=== PATIENT | female | born 1940 | race Caucasian/White ===

== ENCOUNTER 2017-03-08 10:15 | Emergency (ER) | payer MEDICARE, OTHER ==
[~2017-03-08 10:15] MED LIST: AMIT50 PO; ASPI81TA82 PO; BACL10TA PO; CALC-179 PO; DYAZ PO; FISH1000 PO; KONS520C PO; NORV5TAB PO; PARO10TA PO; PERC5TAB12 PO; PRAV20 PO; PRED20 PO; RANI150 PO
[2017-03-08 10:17] VITALS: BP 101/63; PULSE 92; RESP 20; TEMP 98.7; O2SAT 96
[2017-03-08] MEDS ORDERED: AMIT50TA3 PO (11:40)
[2017-03-08] MEDS ORDERED: PAXI10TA8 PO (11:40)
[2017-03-08] MEDS ORDERED: AMLO5 PO (11:43)
[2017-03-08] MEDS ORDERED: PRAV20TA2 PO (11:43)
[2017-03-08] MEDS ORDERED: OMEG100010 PO (11:43)
[2017-03-08] MEDS ORDERED: CALC600T5 PO (11:45)
[2017-03-08] MEDS ORDERED: ASPI81TA23 PO (11:46)
--- NOTE | 2017-03-08 11:52 | PD ---
HPI Chief Complaint: Fall Time Seen by Provider: 11:41 Travel History International Travel<30 days: No Contact w/Intl Traveler<30days: No Traveled to known affect area: No History of Present Illness HPI 76-year-old right-hand dominant female with PMH of arthritis presents to the ED for evaluation of 10 /10 throbbing right wrist and thumb pain. Pain somewhat alleviated by rest. Onset after the patient tripped while carrying a basket in the grass and landed on her outstretched arm. She denies numbness, tingling or weakness. She endorses limitations to range of motion secondary to pain. She treated at home with Tylenol 3 last night and applied a brace. Denies previous injury to the area. PFSH Past Medical History Arthritis: Yes Autoimmune Disease: No Anxiety: Yes Cancer: No Cardiovascular Problems: No High Cholesterol: Yes Endocrine: No Genitourinary: No Headaches: Yes Hypertension: Yes Immune Disorder: No Musculoskeletal: No Reproductive: No Respiratory: No Migraines: Yes Tetanus Vaccination: > 5 Years Influenza Vaccination: Yes ?: Not Menopausal: Yes Tubal Ligation: Yes Past Surgical History Body Medical Devices: screw right shoulder Gynecologic Surgery: Yes (breast biopsy age 35 benign, laparoscopy age 46) Tonsillectomy: Yes Other Surgery: Yes Social History Alcohol Use: No Tobacco Use: No Substance Use: No Allergies-Medications (Allergen,Severity, Reaction): Coded Allergies: No Known Allergies (Unverified Adverse Reaction, Unknown, 03/08/17) Reported Meds & Prescriptions Reported Meds & Active Scripts Active Reported Naproxen Unknown Strength Tab Unknown Dose PO BID PRN Psyllium Powder 100 % Pow 1 Scoop PO DAILY PRN 1 rounded TEASPO[place] in 8 oz of liquid at the first sign of irregularity. Triamterene-Hydrochlorothiazide 37.5-25 Mg Cap 1 Cap PO DAILY Aspirin EC (Aspirin) 81 Mg Tabdr 81 Mg PO DAILY Calcium (Calcium Carbonate) 600 Mg Calcium (1500 Mg) Tab 1 Tab PO DAILY [place] Level 3 1000 mg (Pine Level-3 Fatty Acids) 300 Mg-1,000 Mg Cap 1,000 Mg PO DAILY Norvasc (Amlodipine Besylate) 5 Mg Tab 5 Mg PO DAILY Pravastatin 20 Mg Tab 20 Mg PO HS Paxil (Paroxetine HCl) 10 Mg Tab 10 Mg PO DAILY Amitriptyline (Amitriptyline HCl) 50 Mg Tab 50 Mg PO HS Review of Systems Except as stated in HPI: all other systems reviewed are Neg Physical Exam Narrative GENERAL: Well-nourished, well-developed white female in no acute distress.. SKIN: Focused skin assessment warm/dry. HEAD: Normocephalic. EYES: No scleral icterus. No injection or drainage. NECK: Supple, trachea midline. No JVD or lymphadenopathy. CARDIOVASCULAR: Regular rate and rhythm without murmurs, gallops, or rubs. RESPIRATORY: Breath sounds equal bilaterally. No accessory muscle use. GASTROINTESTINAL: Abdomen soft, non-tender, nondistended. MUSCULOSKELETAL: No cyanosis, or edema. FOCUSED RIGHT UPPER EXTREMITY EXAM: 2+ radial pulse. Arthritic deformity of the digits. Negative snuffbox tenderness. Positive tenderness to palpation at the base of the home. Positive tenderness to palpation of the wrist. Positive tenderness to palpation of the radial head. Range of motion testing deferred secondary to pain. Strong finger to thumb opposition with index finger only. Neurovascularly intact distally. BACK: Nontender without obvious deformity. No CVA tenderness. Data Data Last Documented VS Vital Signs Date Time Temp Pulse Resp B/P (MAP) Pulse Ox O2 Delivery O2 Flow Rate FiO2 03/08/17 11:35 16 96 Room Air 03/08/17 10:17 98.7 92 101/63 (76) Orders Orders Tramadol (Ultram) (03/08/17 12:00) Elbow, Complete (4 Vws) (03/08/17 11:48) Hand, Limited (2vws) (03/08/17 11:48) Wrist, Complete (Qam9ldc) (03/08/17 11:48) Ice/Cold Pack (03/08/17 11:48) Ed Discharge Order (03/08/17 13:03) [facility] Medical Decision Making Medical Screen Exam Complete: Yes Emergency Medical Condition: Yes Differential Diagnosis Fracture versus dislocation versus radial head fracture versus other Narrative Course 76-year-old right-hand dominant female with PMH of arthritis presents to the ED for evaluation of 10 /10 throbbing right wrist and thumb pain. Pain somewhat alleviated by rest. Onset after the patient tripped while carrying a basket in the grass and landed on her outstretched arm. Vitals reviewed. On physical exam the right upper extremity there is a 2+ radial pulse. Arthritic deformity of the digits. Negative snuffbox tenderness. Positive tenderness to palpation at the base of the home. Positive tenderness to palpation of the wrist. Positive tenderness to palpation of the radial head. Range of motion testing deferred secondary to pain. Strong finger to thumb opposition with index finger only. Neurovascularly intact distally. X-rays of the wrist, hand and elbow negative for fracture. This is contusion. Patient's instructed to continue with rest, ice, elevation and anti-inflammatories, follow-up with her primary care provider with her orthopedist. She indicated understanding of instructions and is agreeable to the care plan. She is stable and discharged home. Diagnosis Primary Impression: Contusion of right wrist, initial encounter Referrals: Orthopedist Patient Instructions: Contusion in Adults (ED), General Instructions, Wrist Injury (ED) Additional Instructions: Rest, ice, elevate the extremity. Apply ice no longer than 10-15 minutes per hour a few times a day. Naproxen as directed on label, as needed for pain. Return to normal, gentle activity as tolerated. Follow-up with the orthopedist or primary care provider. Return to the ED for any urgent or emergent medical condition. Disposition: 01 DISCHARGE HOME Condition: Stable Kalpana Carballo Mar 08, 2017 11:52
[2017-03-08] MEDS ORDERED: traMADol HCL 50 MG TAB PO ONE (12:00)
[2017-03-08] MEDS ORDERED: NAPR500T2 PO (12:05)
[2017-03-08] MEDS ORDERED: PSYLPOW4 PO (12:05)
[2017-03-08] MEDS ORDERED: TRIA37.53 PO (12:05)
--- NOTE | 2017-03-08 12:53 | RADRPT ---
EXAM DATE/TIME: 03/08/2017 12:29 [facility] COMPARISON: No previous studies available for comparison. INDICATIONS : Right wrist pain post fall. MEDICAL HISTORY : None. SURGICAL HISTORY : None. ENCOUNTER: Initial ACUITY: 1 day PAIN SCORE: 10/10 LOCATION: Right posterior hand FINDINGS: 3 views of the right wrist demonstrate no acute fracture or dislocation. The bones are undermineraliz ed. There is moderate to severe osteoarthritis at the first carpometacarpal joint with joint space na rrowing, osteophytes, subluxation, and subchondral sclerosis. Soft tissue swelling is present posteri nicolás. There is mineralization within the triangular fibrocartilage complex. No radiopaque foreign bod y is identified. CONCLUSION: 1. No acute right wrist abnormality is identified. 2. Undermineralized bones with moderate to severe osteoarthritis at the first CMC joint. José Miguel Quiroga MD on March 08, 2017 at 12:48 Board Certified Radiologist. This report was verified electronically.
--- NOTE | 2017-03-08 12:55 | RADRPT ---
EXAM DATE/TIME: 03/08/2017 12:29 [facility] COMPARISON: No previous studies available for comparison. INDICATIONS : Right elbow pain post fall. MEDICAL HISTORY : None. SURGICAL HISTORY : None. ENCOUNTER: Initial ACUITY: 1 day PAIN SCORE: 10/10 LOCATION: Right elbow FINDINGS: Multiple view examination of the right elbow demonstrates no soft tissue swelling, joint effusion, or fracture. The osseous structures are in normal alignment. Bony mineralization is normal. CONCLUSION: Negative trauma study. Carlos Ramires MD on March 08, 2017 at 12:52 Board Certified Radiologist. This report was verified electronically.
--- NOTE | 2017-03-08 12:57 | RADRPT ---
EXAM DATE/TIME: 03/08/2017 12:29 [facility] COMPARISON: No previous studies available for comparison. INDICATIONS : Right hand pain post fall MEDICAL HISTORY : None. SURGICAL HISTORY : None. ENCOUNTER: Initial ACUITY: 1 day PAIN SCORE: 10/10 LOCATION: Right posterior hand FINDINGS: Limited AP and lateral views of the right hand were obtained in standard 3 view trauma series limitin g sensitivity. There is diffuse osteopenia with no visualized fracture or malalignment. Degenerative changes are present greatest in the first metacarpocarpal joint with joint space loss, sclerosis and hypertrophic change. There is significant degenerative change involving the second distal interphalan geal joint is well. There is mild soft tissue swelling over the dorsum of the metacarpal head region. CONCLUSION: 1. Limited two-view study demonstrating no acute fracture or malalignment. 2. Osteopenia and osteoarthritic change. Carlos Ramires MD on March 08, 2017 at 12:53 Board Certified Radiologist. This report was verified electronically.
== END 2017-03-08 14:04 | disposition home or self-care (01) ==
LOC: PHED 10:15 → PHEFT 14:04
DX: S60.211A Contusion of right wrist, initial encounter (principal); I10 Essential (primary) hypertension; E78.00 Pure hypercholesterolemia, unspecified; F41.9 Anxiety disorder, unspecified; M19.90 Unspecified osteoarthritis, unspecified site; W01.0XXA Fall on same level from slipping, tripping and stumbling without subsequent striking against object, initial encounter; Z79.82 Long term (current) use of aspirin; Z79.899 Other long term (current) drug therapy
CPT/HCPCS: 73080; 73110; 73120; 99283